=== PATIENT | male | born 1975 | race African-American/Black ===

== ENCOUNTER 2025-08-17 19:19 | Emergency (ER) | payer MEDICARE ==
[~2025-08-17] VITALS: Ht 175.3 cm; Wt 88.5 kg
[2025-08-17 19:25] VITALS: PULSE 92; RESP 16; TEMP 97.3
[2025-08-17] MEDS ORDERED: AZITHROMYCIN250 MG PO (19:42)
[2025-08-17 19:48] VITALS: BP 131/96; PULSE 58; RESP 19; TEMP 98; O2SAT 99
== END 2025-08-17 20:00 | disposition home or self-care (01) ==
LOC: ER 19:23
DX: H92.01 Otalgia, right ear (principal); H72.2X1 Other marginal perforations of tympanic membrane, right ear; W22.8XXA Striking against or struck by other objects, initial encounter; Y92.89 Other specified places as the place of occurrence of the external cause; I10 Essential (primary) hypertension; I50.9 Heart failure, unspecified; I48.91 Unspecified atrial fibrillation; R94.31 Abnormal electrocardiogram [ECG] [EKG]
CPT/HCPCS: 93005; 99283